=== PATIENT | female | born 1980 | race Caucasian/White ===

== ENCOUNTER 2017-06-28 10:55 | Emergency (ER) | payer MEDICAID ==
[2017-06-28 11:10] VITALS: RESP 18; TEMP 98.8
[2017-06-28 11:42] LABS: % IMMATURE GRANULYOCYTES 0.3 % (0.0-1.1); ABSOLUTE IMMATURE GRANULOCYTES 0.02 10^3/uL (0.00-0.10); ADD DIFF? NO; ADD MORPH? NO; ADD SCAN? NO; ATYPICAL LYMPHOCYTE FLAG 0 (0-99); FRAGMENT RBC FLAG 0 (0-99); LEFT SHIFT FLG 0 (0-99); LIPEMIA HEMOLYSIS FLAG 90 (0-99); MEAN CELL HEMOGLOBIN 32.3 pg (27.9-34.1); MEAN CELL HEMOGLOBIN CONCENTR. 35.7 g/dL (32.4-36.7); MEAN CELL VOLUME 90.3 fL (81.5-99.8); MEAN PLATELET VOLUME 9.5 fL (8.7-11.7); PLATELET CLUMPS FLAG 10 (0-99); PLATELET COUNT 230 10^3/uL (150-400); RED BLOOD CELL COUNT 4.65 10^6/uL (4.18-5.33); RED CELL DISTRIBUTION WIDTH 12.3 % (11.5-15.2)
--- NOTE | 2017-06-28 11:45 | EDPHY ---
H & P Time Seen by Provider: 06/28/17 11:15 HPI/ROS: This patient complains of redness and pain to her right lower extremity. She explains that she has a history of eczema and for the past 2 years has had eczema patch to her right pretibial area. This region became more itchy over the past 24 hours causing her to scratch more. Over the past 12 hours she developed increased redness to the area of the eczema as well as proximal erythema streaking up the leg into her medial right thigh. She also has a feeling of an ache in the right thigh the that causes her pain that feels deep in the muscle when she walks. She states the achy pain is moderate with walking and resolves at rest. She has never had these symptoms before. She drove herself here by private vehicle for further evaluation. ROS: Constitutional: No fevers chills or fatigue. HEENT: No complaints line pulmonary: No complaints including no shortness of breath or pleuritic pain Cardiovascular: No heart palpitations or lightheadedness. No calf swelling or pain. GI: No complaints including no nausea or vomiting Integumentary: No skin complaints other than right lower extremity as per HPI. Endocrine: No complaints 10 point ROS is otherwise negative. Social History: She reports rare alcohol intake. No drug use. Smoking Status: Current every day smoker Physical Exam: Physical Exam Vital signs are normal. General: No acute distress HEENT: Atraumatic. Eyes: Pupils equal and react to light. Extraocular motions are intact. Lungs: No respiratory distress. Cardiac: Brisk capillary refill is intact throughout. Pulses are 2+ and symmetric in the affected extremity. Extremities: Right lower extremity is notable for mild tenderness to the medial and posterior thigh deep to the area of erythema. Homans is negative on the right lower extremity. No calf swelling is appreciated. No ankle or foot swelling. Skin: The patient has an area of mild desquamation and dry skin to the right pretibial region consistent with localized eczema but this surrounded by erythema with warmth to touch that extends up the medial leg past the knee to the proximal thigh. The patient has what feels like a palpable cord under the medial thigh erythema. There is associated tenderness. No fluctuance. No drainage. Neuro: Alert and oriented x3 with no sensorimotor deficits. Initial differential diagnosis: Cellulitis associated with eczema, lymphangitis , DVT Constitutional: Initial Vital Signs Temperature (C) 37.1 C 06/28/17 11:07 Heart Rate 93 06/28/17 11:07 Respiratory Rate 18 06/28/17 11:07 Blood Pressure 140/94 H 06/28/17 11:07 O2 Sat (%) 99 06/28/17 11:07 O2 Delivery Mode Room Air Allergies/Adverse Reactions: codeine Allergy (Verified 06/28/17 11:06) Home Medications: Medication Instructions Recorded Cephalexin [Keflex (*)] 500 mg PO QID #40 cap 06/28/17 Effexor 06/28/17 MDM/Departure - MDM Diagnostics: Doppler ultrasound of her lower extremities negative for DVT per Dr. Pierce- radiologist read the study Imaging: Discussed imaging studies w/ call center consultant Radiologist Medications Given: Discontinued Medications Ceftriaxone Sodium 1 gm/ (Sodium Chloride) 100 mls @ 200 mls/hr IV EDNOW ONE PRN Reason: Protocol Stop: 06/28/17 11:53 Last Admin: 06/28/17 11:42 Dose: 100 mls ED Course/Re-evaluation: I obtained a wound culture from the area of abrasion at the eczema patch in the right pretibial area. This is sent to the lab for culture IV, ceftriaxone 1 g Studies: CBC is normal exception of increased neutrophils on differential, CBC is normal, D-dimer is mildly elevated Patient. Her ultrasound study was negative for DVT. I counseled patient regarding her cellulitis. The area of exam is clean. Bacitracin and Tegaderm was applied. She will start Keflex orally as an outpatient. After workup, no evidence of sepsis, DVT or other concerning findings other than the clinical findings consistent with cellulitis. Given her lack of fever or leukocytosis, and no risk for immune deficiency, I think the patient is a candidate for outpatient treatment oral antibiotics. I counseled regarding this. Will start her on Keflex. Call sec reporting consultant arrange follow-up appointment toward the end of her antibiotic course to re-evaluate your eczema. - Depart Disposition: Home, Routine, Self-Care Clinical Impression: Cellulitis, leg Qualifiers: Laterality: right Qualified Code(s): L03.115 - Cellulitis of right lower limb Condition: Good Instructions: Cellulitis (ED) Additional Instructions: Diagnosis: Right leg cellulitis Plan: Apply warm packs to affected area Keep the dressing covering the eczema area in place for the next 2 days. Then removed the dressing gently clean reapply similar dressing Keflex antibiotic as prescribed Ibuprofen Tylenol for discomfort as needed Return for any significant worsening despite the treatment plan. Call a sec reporting consultant - Dr. Rust or or another [employer] near the end of your antibiotic course to re-evaluate ear eczema. Return emergency department for any significant worsening despite the treatment plan. Prescriptions: Cephalexin [Keflex (*)] 500 mg PO QID #40 cap Referrals: NONE *PRIMARY CARE P,. [Primary Care Provider] - As per Instructions EAMON RUST [Medical Doctor] - As per Instructions
[2017-06-28 11:54] LABS: ANION GAP 16 mEq/L (8-16); CALCIUM 8.9 mg/dL (8.5-10.4); CARBON DIOXIDE 22 mEq/l (22-31); CHLORIDE 104 mEq/L (97-110); CREATININE 0.6 mg/dL (0.6-1.0); GLOMERULAR FILTRATION RATE > 60; GLUCOSE 86 mg/dL (70-100); POTASSIUM 3.9 mEq/L (3.5-5.2); SODIUM 142 mEq/L (134-144)
[2017-06-28 14:55] VITALS: BP 128/90; PULSE 82; O2SAT 97
== END 2017-06-28 13:15 | disposition home or self-care (01) ==
LOC: CED 10:55
DX: L03.115 Cellulitis of right lower limb (principal); F17.200 Nicotine dependence, unspecified, uncomplicated
CPT/HCPCS: 80048-PO; 85025-PO; 85378-PO; 93971-PO; 96365; J0696